=== PATIENT | female | born 1965 | race Caucasian/White ===

== ENCOUNTER 2019-11-20 18:57 | Inpatient (IN) | payer OTHER, MEDICAID ==
[~2019-11-20] VITALS: Ht 157.5 cm; Wt 116.8 kg
[2019-11-20 19:00] VITALS: BP 131/69
[2019-11-20 19:21] VITALS: BP 111/68
--- NOTE | 2019-11-20 19:26 | NUR ---
Pt states pain is at a 3 to 4 after nitro at this time.
[2019-11-20 19:27] LABS: HEMATOCRIT 44.2 % (37.0-47.0); MEAN CELL VOLUME 92.7 fl (81.0-99.0); MEAN CORPUSCULAR HGB CONC 32.4 g/dl (33.0-37.0); MEAN PLATELET VOLUME 9.9 fl (9.6-12.3); NUCLEATED RED BLOOD CELL 0.1 10*3/uL (0.0-0.0); NUCLEATED RED BLOOD CELL 1.2 % (0.0-0.0); PLATELET COUNT AUTOMATED 289 10*3/uL (130-400); RED BLOOD COUNT 4.77 10*6/uL (4.10-5.10); RED CELL DISTRI WIDTH 14.8 % (0-14.5)
[2019-11-20 19:37] LABS: ACT PARTIAL THROMBO TIME 23.9 SECONDS (20.0-32.1); INTERNATIONAL NORM RATIO 1.1 (2.0-3.5)
[2019-11-20 19:45] LABS: ALBUMIN 3.1 gm/dl (3.1-4.5); ALKALINE PHOSPHATASE 116 U/L (45-117); BUN 13 mg/dl (7-24); CHLORIDE 106 mmol/L (98-107); POTASSIUM 3.9 mmol/L (3.5-5.1); SGOT/AST 13 IU/L (3-35); SGPT/ALT 27 U/L (12-78); SODIUM 139 mmol/L (136-145); TOTAL PROTEIN 7.4 gm/dL (6.4-8.2); TROPONIN I < 0.015 ng/ml (<0.045)
[2019-11-20 19:47] VITALS: BP 120/66
[2019-11-20 19:50] LABS: PLATELET SUFFICIENCY NORMAL (NORMAL); TOTAL CELLS COUNTED 100 #CELLS
[2019-11-20 21:00] VITALS: BP 125/89
--- NOTE | 2019-11-20 21:18 | NUR ---
jolie faxed at this time
--- NOTE | 2019-11-20 21:24 | NUR ---
Hussein Schuster aware of headache at this time.Orders for nitro paste and tylenlol at this time.
[2019-11-20 21:29] VITALS: BP 123/78
--- NOTE | 2019-11-20 21:33 | NUR ---
Nitro patch applied to right upper chest at this time.
[2019-11-20 21:40] VITALS: BP 119/87
--- NOTE | 2019-11-20 21:40 | NUR ---
A 54, admitted to 5E, under the services of SANDRA Oneill DO with a diagnosis of ANGINA. R/O MYOCARDIAL INFARCTION. Chief complaint is CHEST PAIN. Patient arrived via wheel chair from ER. Monitor applied. Initial assessment completed. Vital signs taken and recorded. SANDRA ONEILL DO notified of admission to the unit. Orders received. See assessment for past medical history, medications and allergies. Patient and/or family oriented to unit. [address] visitation policy reviewed. Clothing/patient valuable form completed. SKIN WDI. NO WOUNDS ON ADMISSION. CHARANJIT JIMENEZ
--- NOTE | 2019-11-20 21:40 | NUR ---
Pt wheeled up to 5 east and report given to Elizabeth farris.
[2019-11-20] MEDS ORDERED: LISINOPRIL2.5 MG PO (22:01)
[2019-11-20] MEDS ORDERED: CLOPIDOGREL75 MG PO (22:01)
[2019-11-20] MEDS ORDERED: ESOMEPRAZOLE MA40 M1 PO (22:02)
[2019-11-20] MEDS ORDERED: SPIRONOLACTONE50 M1 PO (22:02)
[2019-11-20] MEDS ORDERED: METOPROLOL SUCC25 M2 PO (22:02)
[2019-11-20] MEDS ORDERED: FARXIGA10 M1 PO (22:04)
[2019-11-20] MEDS ORDERED: GABAPENTIN400 MG PO (22:04)
[2019-11-20] MEDS ORDERED: XARE20MG PO (22:05)
[2019-11-20] MEDS ORDERED: METFORMIN XR500 MG PO (22:05)
[2019-11-20] MEDS ORDERED: PROPAFENONE HC150 MG PO (22:05)
[2019-11-20] MEDS ORDERED: ROSUVASTATIN CA20 MG PO (22:06)
[2019-11-20] MEDS ORDERED: NOVOLOG MI100 UNIT/1 SQ (22:06)
[2019-11-20] MEDS ORDERED: VICTOZA 3-0.6 MG/0.1 SC (22:07)
[2019-11-20] MEDS ORDERED: VITAMIN D210 MCG PO (22:24)
--- NOTE | 2019-11-20 22:36 | NUR ---
DR BOJORQUEZ NOTIFIED OF PT ARRIVAL TO FLOOR AND NEED FOR ADMISSION ORDERS. NOTIFIED OF UPDATED MED REC. STATES THAT I CAN CONTINUE XARELTO, NEUROTIN, ROSUCASTATIN, AND PROPAFENONE FOR THIS EVENING AND HE WILL ORDER THE REST WHEN HE CAN.
--- NOTE | 2019-11-20 23:36 | NUR ---
NEW PATIENT CALLED INTO ANSWERING SERVICE FOR DR MAX.
--- NOTE | 2019-11-20 23:59 | NUR ---
TEDS/SCDS ON PT.
[2019-11-21] VITALS: BP 128/67
--- NOTE | 2019-11-21 04:10 | NUR ---
TYLENOL ADMINISTERED FOR PT C/O HEADACHE. WILL MONITOR AND REASSESS.
--- NOTE | 2019-11-21 05:00 | NUR ---
PT ASLEEP AT THIS TIME, SO S/S OF DISTRESS NOTED. TYLENOL APPEARS TO BE EFFEVCTIVE.
[2019-11-21 07:00] LABS: HEMATOCRIT 42.7 % (37.0-47.0); MEAN CELL VOLUME 95.1 fl (81.0-99.0); MEAN CORPUSCULAR HGB 30.5 pg (27.0-31.0); MEAN CORPUSCULAR HGB CONC 32.1 g/dl (33.0-37.0); MEAN PLATELET VOLUME 9.8 fl (9.6-12.3); NUCLEATED RED BLOOD CELL 0.1 10*3/uL (0.0-0.0); NUCLEATED RED BLOOD CELL 0.5 % (0.0-0.0); PLATELET COUNT AUTOMATED 252 10*3/uL (130-400); RED BLOOD COUNT 4.49 10*6/uL (4.10-5.10); RED CELL DISTRI WIDTH 14.8 % (0-14.5); WHITE BLOOD COUNT 9.5 10*3/uL (4.8-10.8)
[2019-11-21 07:22] LABS: ATYPICAL LYMPHS 1 % (0-0); PLATELET SUFFICIENCY NORMAL (NORMAL); TOTAL CELLS COUNTED 100 #CELLS
[2019-11-21 07:24] LABS: BUN 14 mg/dl (7-24); CHLORIDE 107 mmol/L (98-107); CHOLESTEROL 119 mg/dL (<200); CREATININE 0.63 mg/dL (0.55-1.02); POTASSIUM 3.8 mmol/L (3.5-5.1); SGOT/AST 11 IU/L (3-35); SGPT/ALT 25 U/L (12-78); SODIUM 142 mmol/L (136-145); TRIGLYCERIDES 190 mg/dl (<150); VLDL CHOLESTEROL 38 mg/dL (6-40)
[2019-11-21 07:31] LABS: ALKALINE PHOSPHATASE 110 U/L (45-117); FREE T4 0.89 ng/dl (0.76-1.46); HDL CHOLESTEROL 38 mg/dl (40-60); LDL CHOLESTEROL 43 mg/dL (9-159); TOTAL PROTEIN 6.9 gm/dL (6.4-8.2)
[2019-11-21 08:00] VITALS: BP 180/70
[2019-11-21 08:15] LABS: VITAMIN D, 25-HYDROXY 51.3 ng/mL (30-100)
[2019-11-21 09:25] VITALS: BP 142/78
[2019-11-21 12:00] VITALS: BP 100/57
--- NOTE | 2019-11-21 12:25 | NUR ---
ADMINISTERED IMMODIUM X 1 PO FOR DIARRHEA EPISODE ORDERED.
--- NOTE | 2019-11-21 13:55 | NUR ---
Crm Marketing Executive in to talk to patient in Room. Patient states that she lives with her Daughter in an apartment. There are no steps in the home. Physician: Symone Hammonds at [facility] Pharmacy: [facility] Home health services: Just completed Therapy with [facility]. Patient's level of ADLs: Independent Patient has working utilities: Yes DME: None Follow-up physician's appointment after d/c: Symone Hammonds [facility] Does patient want to access PORTAL?: No Discharge plan: Pt. States she will return home with her daughter. Voiced no needs for Home Health. Pt. is Independent in Care. Pt. does have a Shower Bench. NISHA DAMON LPN.
[2019-11-21 16:00] VITALS: BP 115/67
[2019-11-21 20:00] VITALS: BP 100/80
[2019-11-22] VITALS: BP 101/46
[2019-11-22 08:00] VITALS: BP 100/70
--- NOTE | 2019-11-22 08:00 | NUR ---
MORNING ASSESSMENT COMPLETED. NO COMPLAINTS VOICED AT THIS TIME.
[2019-11-22 12:00] VITALS: BP 106/50
[2019-11-22 16:00] VITALS: BP 139/80
[2019-11-22 20:00] VITALS: BP 126/87
--- NOTE | 2019-11-22 20:30 | NUR ---
RESTING IN BED WITH NO DISTRESS NOTED. RESPIRATIONS EASY. LUNGS DIMINISHED, CLEAR. PULSE OX 98% RA. TRACE BLE EDEMA WITH TEDS IN PLACE, SCDS PRESENT AT BEDSIDE. CALL LIGHT WITHIN REACH. NO VOICED COMPLAINTS
--- NOTE | 2019-11-22 20:46 | NUR ---
24 HR chart check completed.
[2019-11-23] VITALS: BP 132/80; BP 133/99
--- NOTE | 2019-11-23 | NUR ---
SLEEPING. NO DISTRESS NOTED. RESPIRATIONS EASY. VSS. CALL LIGHT WITHIN REACH.
--- NOTE | 2019-11-23 06:00 | NUR ---
SLEPT THROUGHOUT NIGHT WITH NO DISTRESS NOTED. RESPIRATIONS EASY. REMAINS CHEST PAIN FREE. CALL LIGHT WITHIN REACH. NO VOICED COMPLAINTS THIS SHIFT. NPO STATUS MAINTAINED.
--- NOTE | 2019-11-23 08:00 | NUR ---
IN TO ASSESS PATIENT. ASLEEP ON ENTRANCE TO ROOM. SLEPT THROUGH MOST OF ASSESSMENT. DENIES CHEST PAIN. PT REMINDED OF NPO STATUS FOR STRESS TEST TODAY. PT ACKNOWLEDGED. RESPIRATIONS EASY AND NONLABORED. NO S/S OF DISTRESS. WILL CONTINUE TO MONITOR. BED LOCKED AND IN THE LOWEST POSITION. CALL LIGHT IN REACH.
--- NOTE | 2019-11-23 08:13 | NUR ---
PHYSICAL THERAPY Screen received, pt atmitted from home w chest pain. Please consult PT if pts functional status declines from baseline. Thank you. Cody oTvar SPT Barbie Dominguez PT
--- NOTE | 2019-11-23 08:16 | NUR ---
Nursing screen received and chart reviewed. Patient admitted for chest pain. If patient has a decline in ADLs, transfers, or functional mobility, please send OT orders. Thank you. Roseline Roberts, OTR/L
--- NOTE | 2019-11-23 09:00 | NUR ---
case management talks with patient, she states she will return home when discharged and denies any home needs, case management will follow
--- NOTE | 2019-11-23 10:35 | NUR ---
INFORMED CONSENT SIGNED FOR STANDARD STRESS TEST WITH DR. ALVARADO. RESTING EKG NSR, HR 74, BP 140/78. COMPLETED 1:50 OF A STANDARD DENILSON PROTOCOL REMAINING IN STAGE I. PEAK HEART RATE OF 106 ACHIEVED WHICH IS 64% PREDICTED MAXIMUM AND A PEAK BP OF 144/80. TEST TERMINATED D/T PT C/O SEVERE LEFT HIP PAIN AND HISTORY OF COLLAPSING WITH PAIN. HAS LIMITED EXERCISE TOLERANCE. THIS IS A SUBMAXIMAL STRESS TEST. LAST RECOVERY HR 85, BP 132/70. DR. SHAH EXPLAINED TO PT THE NEED FOR A NUCLEAR STRESS TEST D/T HEART RATE NOT ACHIEVING 85% MAXIMUM. PT CONSENTS TO TEST. FIFTH FLOOR NOTIFIED THAT PT WOULD BE DOWNSTAIRS LONGER D/T NEED TO PERFORM LEXISCAN STRESS TEST. WAITING FOR LEXISCAN TEST IN STABLE CONDITION.
--- NOTE | 2019-11-23 10:56 | NUR ---
ACCORDING TO [facility] PT UNABLE TO TOLERATE EXERCISE STRESS & REQUIRES LEXISCAN. PT WILL REMAIN THERE UNTIL THE TEST IS COMPLETE. DR ENGEL NOTIFIED.
--- NOTE | 2019-11-23 12:27 | NUR ---
INFORMED CONSENT SIGNED FOR LEXISCAN STRESS TEST WITH DR. SHAH. RESTING EKG NSR, HR 78, BP 118/70. PULSE OX 95% AND LUNGS CLEAR BILATERALLY. COMPLETED ONE MINUTE OF LEXISCAN PROTOCOL RECEIVING LEXISCAN 0.4MG OVER 10 SEC[address] NO ARRHYTHMIAS OR ST CHANGES NOTED. PT C/O SOB. LAST RECOVERY HR 86, BP 108/60. WAITING NUCLEAR SCANNING IN STABLE CONDITION.
--- NOTE | 2019-11-23 13:55 | NUR ---
GETTING PATIENT UP FROM NUCLEAR IMAGING FOR STRESS TEST AND SMALL AMOUNT OF DRIED BLOOD NOTICED ON LEFT LOWER LEG. AREA CLEANED. NO BLEEDING AT PRESENT. IS NARROW AND SHALLOW ABOUT 1.5 INCHES LONG. PT RETURNED TO NURSING UNIT AND REPORT GIVEN TO SALESPERSON SHEET MUSIC AND SHOWED AREA. SALESPERSON SHEET MUSIC WILL APPLY ANTIBIOTIC DRESSING. DR. CUEVAS NOTIFIED.
--- NOTE | 2019-11-23 14:00 | NUR ---
PT BACK FROM SURGERY.
--- NOTE | 2019-11-23 15:15 | NUR ---
DR DAVIES NOTIFIED THAT STRESS TEST RESULTS ARE BACK.
--- NOTE | 2019-11-23 16:01 | NUR ---
DR DAVIES NOTIFIED PT UNABLE TO LEAVE FLOOR UNTIL HER DAUGHTER GETS OFF WORK AT 1814. STATES THAT IS NO ISSUE.
--- NOTE | 2019-11-23 16:18 | NUR ---
HEP LOCK REMOVED.
--- NOTE | 2019-11-23 16:18 | NUR ---
HEART MONITOR REMOVED AND PLACED IN YELLOW BIN.
--- NOTE | 2019-11-23 16:36 | NUR ---
DISCHARGE INSTRUCTIONS REVIEWED WITH PATIENT. PAPERWORK SIGNED. ALL BELONGINGS LEAVING WITH HER. STATES THAT DAUGHTER GOT OFF OF WORK EARLY AND IS READY TO PICK HER UP AT ER ENTRANCE. PT LEAVING FLOOR BY WHEELCHAIR ATTENDED BY AID. CHART COMPLETE.
== END 2019-11-23 16:36 | disposition home or self-care (01) | DRG 206 ==
LOC: ED 18:57 → EDHOLD 20:58 → 5E 20:58
PROVIDERS: Emergency Medicine; Internal Medicine; ADMIT Emergency Medicine
PROC: 4A02XM4 Measurement of Cardiac Total Activity, External Approach (ICD-10-PCS; principal; 2019-11-23)
PROC: 3E073KZ Introduction of Other Diagnostic Substance into Coronary Artery, Percutaneous Approach (ICD-10-PCS; principal; 2019-11-23)
DX: M94.0 Chondrocostal junction syndrome [Tietze] (principal); Z68.42 Body mass index [BMI] 45.0-49.9, adult; E44.0 Moderate protein-calorie malnutrition; R65.10 Systemic inflammatory response syndrome (SIRS) of non-infectious origin without acute organ dysfunction; E66.01 Morbid (severe) obesity due to excess calories; E11.65 Type 2 diabetes mellitus with hyperglycemia; I48.0 Paroxysmal atrial fibrillation; E78.2 Mixed hyperlipidemia; E53.8 Deficiency of other specified B group vitamins; E11.51 Type 2 diabetes mellitus with diabetic peripheral angiopathy without gangrene; I10 Essential (primary) hypertension; I65.29 Occlusion and stenosis of unspecified carotid artery; Z72.0 Tobacco use; R00.0 Tachycardia, unspecified; Z71.6 Tobacco abuse counseling; Z82.49 Family history of ischemic heart disease and other diseases of the circulatory system; Z83.3 Family history of diabetes mellitus; Z79.899 Other long term (current) drug therapy; Z79.01 Long term (current) use of anticoagulants; Z79.4 Long term (current) use of insulin; Z88.0 Allergy status to penicillin